=== PATIENT | female | born 1980 | race Caucasian/White ===

== ENCOUNTER 2017-09-25 09:46 | Emergency (ER) | payer OTHER, MEDICAID ==
[2017-09-25 10:12] LABS: URINE BLOOD (Dip) POC Trace-lysed (NEGATIVE); URINE GLUCOSE (Dip) POC Negative (NEGATIVE); URINE KETONES (Dip) POC 2+ (NEGATIVE); URINE LEUKOCYTE EST (Dip) POC Negative (NEGATIVE); URINE NITRITE (Dip) POC Negative (NEGATIVE); URINE TOTAL PROTEIN POC 1+ (NEGATIVE)
[2017-09-25 10:12] LABS: URINE PH (Dip) POC 5.5 (5.0-8.5)
[2017-09-25 10:43] LABS: ADD UMIC YES; UR ASCORBIC ACID NEGATIVE (NEGATIVE); UR BACTERIA FEW /HPF (NONE SEEN); UR BILIRUBIN (Dip) NEGATIVE (NEGATIVE); UR BLOOD (Dip) 1+ mg/dL (NEGATIVE); UR CLARITY SLIGHTLY CLOUDY (CLEAR); UR COLOR YELLOW (YELLOW); UR GLUCOSE (Dip) NEGATIVE (NEGATIVE); UR KETONES (Dip) 1+ mg/dL (NEGATIVE); UR LEUKOCYTE ESTERASE (Dip) TRACE Leu/ul (NEGATIVE); UR MUCUS FEW /HPF (NONE SEEN); UR NITRITE (Dip) NEGATIVE (NEGATIVE); UR RBC 1 /HPF (0-5); UR SQUAMOUS EPITHELIAL CELL FEW /HPF (FEW); UR TOTAL PROTEIN (Dip) 1+ mg/dl (NEGATIVE); UR UROBILINOGEN (Dip) NEGATIVE (NEGATIVE); UR WBC 6 /HPF (0-5)
== END 2017-09-25 11:01 | disposition home or self-care (01) ==
LOC: FTE 09:46
DX: N39.0 Urinary tract infection, site not specified (principal); E11.9 Type 2 diabetes mellitus without complications; Z79.84 Long term (current) use of oral hypoglycemic drugs
CPT/HCPCS: 81001; 81003; 81025; 99283

== ENCOUNTER 2017-09-30 18:11 | Emergency (ER) | payer OTHER ==
[2017-09-30 19:46] LABS: ADD UMIC YES; UR ASCORBIC ACID NEGATIVE (NEGATIVE); UR BILIRUBIN (Dip) NEGATIVE (NEGATIVE); UR BLOOD (Dip) 3+ mg/dL (NEGATIVE); UR CLARITY CLEAR (CLEAR); UR COLOR YELLOW (YELLOW); UR GLUCOSE (Dip) 3+ mg/dL (NEGATIVE); UR KETONES (Dip) TRACE mg/dL (NEGATIVE); UR LEUKOCYTE ESTERASE (Dip) NEGATIVE Leu/ul (NEGATIVE); UR NITRITE (Dip) NEGATIVE (NEGATIVE); UR RBC 23 /HPF (0-5); UR SPECIFIC GRAVITY (Dip) 1.021 (1.003-1.030); UR TOTAL PROTEIN (Dip) NEGATIVE (NEGATIVE); UR UROBILINOGEN (Dip) NEGATIVE (NEGATIVE); UR WBC 1 /HPF (0-5)
== END 2017-09-30 21:58 | disposition home or self-care (01) ==
LOC: FTE 18:11
DX: N83.202 Unspecified ovarian cyst, left side (principal); E11.9 Type 2 diabetes mellitus without complications
CPT/HCPCS: 76830; 76856; 81001; 81025; 87086; 87591; 99284-25